=== PATIENT | male | born 1965 | race Caucasian/White ===

== ENCOUNTER 2023-07-21 01:34 | Emergency (ER) | payer BC ==
[~2023-07-21] VITALS: Ht 172.7 cm; Wt 83.6 kg
[2023-07-21 01:39] VITALS: TEMP 98.1
[2023-07-21] MEDS ORDERED: ONDA-104 PO (02:27)
[2023-07-21] MEDS ORDERED: IBUP-1493 PO (02:27)
[2023-07-21] MEDS ORDERED: HYDR-4723 PO (02:27)
[2023-07-21 02:35] VITALS: BP 143/85; PULSE 67; RESP 18
[2023-07-21 02:44] LABS: APPEARANCE,URINE CLEAR (CLEAR); BILIRUBIN,URINE NEGATIVE (NEGATIVE); COLOR,URINE LIGHT YELLOW (YELLOW); GLUCOSE, URINE (UA) NEGATIVE (NEGATIVE); KETONES,URINE NEGATIVE (NEGATIVE); LEUKOCYTE ESTERASE ,URINE NEGATIVE (NEGATIVE); NITRATE,URINE NEGATIVE (NEGATIVE); OCCULT BLOOD,URINE LARGE (NEGATIVE); PH,URINE 6.5 (5.0-8.0); PROTEIN,URINE NEGATIVE (NEGATIVE); SPECIFIC GRAVITIY, URINE 1.013 (1.003-1.030); UROBILINOGEN,URINE <=1.0 mg/dL (<=1.0)
[2023-07-21 03:13] LABS: BACTERIA,URINE None Seen /HPF (None Seen); SQUAMOUS EPITHELIAL CELL,UR Few /LPF (None Seen); WBC,URINE None Seen /HPF (0-5)
== END 2023-07-21 03:16 | disposition home or self-care (01) ==
LOC: EMS 01:46
DX: N20.9 Urinary calculus, unspecified (principal); E78.00 Pure hypercholesterolemia, unspecified; Z98.890 Other specified postprocedural states
CPT/HCPCS: 81001; 99283